=== PATIENT | male | born 1960 | race Asian ===

== ENCOUNTER 2022-04-21 10:54 | Outpatient (CLI) | payer OTHER | END 2022-04-21 10:55 | disposition home or self-care (01) | LOC: BICULT 10:54 | PROVIDERS: ATTEND Internal Medicine Nephrology | DX: I12.9 Hypertensive chronic kidney disease with stage 1 through stage 4 chronic kidney disease, or unspecified chronic kidney disease (principal); N18.30 Chronic kidney disease, stage 3 unspecified | CPT/HCPCS: 76770; 93975 ==